=== PATIENT | female | born 1960 | race Caucasian/White ===

== ENCOUNTER 2017-08-29 11:08 | Inpatient (IN) | payer OTHER ==
[~2017-08-29] VITALS: Ht 165.1 cm; Wt 97.6 kg
[~2017-08-29 11:08] MED LIST: BENZONATATE100 MG PO; BUPROPION HCL75 MG PO; CIPROFLOXACIN500 M1 PO; HYDROCHLOROTHIA25 MG PO; METRONIDAZOLE500 MG PO; NIGHTTIME SLEEP50 M1 PO; PAROXETINE HCL20 MG PO; QUINAPRIL HCL40 MG PO
[2017-08-29 12:21] LABS: BASOPHIL (%) 0.2 % (0-1); EOSINOPHIL (%) 0.2 % (0-5); HEMATOCRIT 41.7 % (36.0-46.0); HEMOGLOBIN 13.9 G/DL (11.9-15.5); IMMATURE GRANULOCYTE (%) 0.3 % (0.0-0.7); LYMPHOCYTE (%) 19.4 % (15-42); LYMPHOCYTE COUNT 1.2 K/uL (1.0-2.8); MCH 29.1 PG (29.0-34.0); MCHC 33.3 G/DL (30.0-36.0); MCV 87.4 FL (83-99); MONOCYTE (%) 9.7 % (3-12); MONOCYTE COUNT 0.6 K/uL (0-0.8); NEUTROPHIL (%) 70.2 % (45-76); NEUTROPHIL COUNT 4.2 K/uL (1.8-6.4); PLATELET COUNT 269 K/uL (156-360); RBC DIS.WIDTH-CV 13.3 % (11.8-14.6); RBC DIS.WIDTH-SD 42.6 % (39-53); RED BLOOD COUNT 4.77 M/uL (3.80-5.20)
[2017-08-29 12:29] LABS: ALBUMIN 3.7 g/dL (3.2-4.8); CHLORIDE 99 mEq/L (99-109); POTASSIUM 2.8 mEq/L (3.7-5.4); SODIUM 137 mEq/L (136-147)
[2017-08-29 12:30] LABS: MAGNESIUM 2.1 mg/dL (1.3-2.7)
[2017-08-29 12:31] LABS: GLUCOSE 106 mg/dL (70-99); TOTAL PROTEIN 6.4 g/dL (6.4-8.3)
[2017-08-29 12:33] LABS: TOTAL BILIRUBIN 0.4 mg/dL (0.0-1.0)
[2017-08-29 12:35] LABS: ALKALINE PHOSPHATASE 63 IU/L (3-129); CREATININE 4.8 mg/dL (0.6-1.3); GFR ESTIMATE (CALCULATED) 10 mL/min/
[2017-08-29 12:36] LABS: UREA NITROGEN (BUN) 58 mg/dL (9-23)
[2017-08-29 12:37] LABS: AST (GOT) 13 IU/L (2-34)
[2017-08-29 12:38] LABS: ALT (GPT) 16 IU/L (3-49)
[2017-08-29 14:10] LABS: APPEARANCE CLOUDY ((CLEAR)); BILIRUBIN NEGATIVE; BLOOD SMALL; COLOR YELLOW ((YELLOW)); GLUCOSE (STRIP) NEGATIVE; KETONES NEGATIVE; LEUKOCYTES LARGE; NITRITE NEGATIVE; PROTEIN (STRIP) 30; SPECIFIC GRAVITY 1.012 (1.000-1.030); UROBILINOGEN 0.2 MG/DL (0.2-1.0)
[2017-08-29 14:21] LABS: BACTERIA NONE SEEN /HPF; CALCIUM OXALATE CRYSTALS 2+ /HPF; EPITHELIAL CELLS 1+ /HPF; HYALINE CASTS 20-30 /LPF; MUCUS 1+ /LPF; WHITE BLOOD CELLS 30-40 /HPF (0-5)
[2017-08-29 16:49] VITALS: BP 118/68
[2017-08-29 21:40] LABS: UR CREATININE CONCENTRATION 244.8 MG/DL
[2017-08-30 00:44] VITALS: BP 89/54
[2017-08-30 06:01] LABS: HEMOGLOBIN 12.8 G/DL (11.9-15.5); MCH 29.2 PG (29.0-34.0); MCHC 32.8 G/DL (30.0-36.0); PLATELET COUNT 240 K/uL (156-360); RBC DIS.WIDTH-CV 13.2 % (11.8-14.6); RBC DIS.WIDTH-SD 43.5 % (39-53); RED BLOOD COUNT 4.38 M/uL (3.80-5.20); WHITE BLOOD COUNT 3.3 K/uL (4.1-10.2)
[2017-08-30 06:25] LABS: ALBUMIN 3.6 G/DL (3.2-4.8); ALKALINE PHOSPHATASE 59 IU/L (3-129); ALT (GPT) 12 IU/L (3-49); AST (GOT) 10 IU/L (2-34); CHLORIDE 108 MEQ/L (99-109); GLUCOSE 144 mg/dL (70-99); SODIUM 142 MEQ/L (136-147); TOTAL BILIRUBIN 0.3 MG/DL (0.0-1.0); TOTAL PROTEIN 5.7 G/DL (6.4-8.3); UREA NITROGEN (BUN) 47 mg/dL (9-23)
[2017-08-30 06:26] LABS: GFR ESTIMATE (CALCULATED) 27 mL/min/; POTASSIUM 4.3 MEQ/L (3.7-5.4)
[2017-08-30 07:41] VITALS: BP 110/64
[2017-08-30 15:22] VITALS: BP 129/72
[2017-08-30 23:48] VITALS: BP 100/54
[2017-08-31 00:30] VITALS: BP 129/72
[2017-08-31 05:50] LABS: BASOPHIL (%) 0.2 % (0-1); EOSINOPHIL (%) 0 % (0-5); HEMATOCRIT 36.2 % (36.0-46.0); HEMOGLOBIN 12.1 G/DL (11.9-15.5); LYMPHOCYTE (%) 29.1 % (15-42); LYMPHOCYTE COUNT 1.7 K/uL (1.0-2.8); MCHC 33.4 G/DL (30.0-36.0); MCV 89.8 FL (83-99); MONOCYTE (%) 9.7 % (3-12); MONOCYTE COUNT 0.6 K/uL (0-0.8); NEUTROPHIL COUNT 3.5 K/uL (1.8-6.4); PLATELET COUNT 232 K/uL (156-360); RBC DIS.WIDTH-CV 13.2 % (11.8-14.6); RBC DIS.WIDTH-SD 43.8 % (39-53); RED BLOOD COUNT 4.03 M/uL (3.80-5.20); WHITE BLOOD COUNT 5.9 K/uL (4.1-10.2)
[2017-08-31 06:32] LABS: ALBUMIN 3.3 G/DL (3.2-4.8); CHLORIDE 108 MEQ/L (99-109); GFR ESTIMATE (CALCULATED) 41 mL/min/; PHOSPHORUS 2.7 mg/dL (2.5-4.9); POTASSIUM 3.6 MEQ/L (3.7-5.4); SODIUM 142 MEQ/L (136-147); UREA NITROGEN (BUN) 36 mg/dL (9-23)
[2017-08-31 06:33] LABS: ALBUMIN 3.3 G/DL (3.2-4.8); ALKALINE PHOSPHATASE 51 IU/L (3-129); ALT (GPT) 10 IU/L (3-49); AST (GOT) 8 IU/L (2-34); CHLORIDE 109 MEQ/L (99-109); GFR ESTIMATE (CALCULATED) 41 mL/min/; POTASSIUM 3.8 MEQ/L (3.7-5.4); SODIUM 142 MEQ/L (136-147); TOTAL BILIRUBIN 0.3 MG/DL (0.0-1.0); TOTAL PROTEIN 5.1 G/DL (6.4-8.3); UREA NITROGEN (BUN) 35 mg/dL (9-23)
[2017-08-31 06:35] LABS: CREATININE 1.4 MG/DL (0.6-1.3); GLUCOSE 100 mg/dL (70-99); GLUCOSE 99 mg/dL (70-99)
[2017-08-31 07:36] VITALS: BP 153/92
[2017-08-31] MEDS ORDERED: PREDNISONE10 MG PO (09:33)
== END 2017-08-31 12:07 | disposition home or self-care (01) | DRG 684 ==
LOC: EME 11:08 → EDOF 14:14 → 5EAST 14:14 → ENRESERV 14:18 → EDOF 14:25 → ENRESERV 14:46 → EDOF 15:08 → 5EAST 15:41
PROVIDERS: Emergency Medicine; Internal Medicine; Student in an Organized Health Care Education/Training Program
DX: N17.9 Acute kidney failure, unspecified (principal); E86.1 Hypovolemia; E87.6 Hypokalemia; I10 Essential (primary) hypertension; F32.9 Major depressive disorder, single episode, unspecified; F41.9 Anxiety disorder, unspecified; E86.0 Dehydration; J10.1 Influenza due to other identified influenza virus with other respiratory manifestations; J40 Bronchitis, not specified as acute or chronic; Z88.0 Allergy status to penicillin; Z79.899 Other long term (current) drug therapy; Z82.49 Family history of ischemic heart disease and other diseases of the circulatory system; Z90.49 Acquired absence of other specified parts of digestive tract; Z82.3 Family history of stroke; Z80.3 Family history of malignant neoplasm of breast
CPT/HCPCS: 71020; 76770; 80053; 80069; 81003; 82570; 83605; 83735; 84300; 85025; 85027; 86160; 87040; 87502; 90686; 99202; 99281; 99285; J1644; J2405; J2930; J3480; J7030